=== PATIENT | male | born 1975 | race Caucasian/White ===

== ENCOUNTER 2020-05-23 11:12 | Outpatient (CLI) | payer MEDICAID, SELFPAY ==
--- NOTE | 2020-05-23 10:45 | DI.RAD_ITS ---
EXAM: XR TIB/FIB LT CLINICAL HISTORY: leg pain TECHNIQUE: COMPARISON: CR XR ANKLE LT COMPLETE from 05/23/2020 FINDINGS: Four views of the ankle and two views of the leg were obtained. There are 2 fixation screws in the m edial malleolus and there is plate and screw fixation of the distal fibula. The ankle mortise appear s fairly well maintained. Mild to moderate degenerative changes noted at the tibiotalar and subtalar joints. No other significant bony abnormality seen. IMPRESSION:
--- NOTE | 2020-05-23 11:00 | DI.RAD_ITS ---
EXAM: XR LUMBAR SPINE AP, LAT CLINICAL HISTORY: back pain TECHNIQUE: COMPARISON: No exams were available for comparison FINDINGS: Three views were obtained. There is a mild left convex lumbar scoliosis. There are slight degenerat robyn changes of the SI joints. There is multilevel disc space narrowing throughout the lumbar region. There is an apparent developmental anterior superior endplate defect of L4 and similar defect of in ferior anterior endplate L1. There is no evidence of acute fracture. There are mild endplate and fa cet hypertrophic degenerative changes. IMPRESSION: Mild DJD of the lumbosacral spine. 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
== END 2020-05-23 11:32 ==
PROVIDERS: Visit Provider Physician Assistant
DX: M25.579 Pain in unspecified ankle and joints of unspecified foot (principal); M54.9 Dorsalgia, unspecified; M51.37 Other intervertebral disc degeneration, lumbosacral region; M19.072 Primary osteoarthritis, left ankle and foot; M79.605 Pain in left leg
CPT/HCPCS: 72100; 73590; 73610

== ENCOUNTER 2020-05-27 03:19 | Outpatient (CLI) | payer MEDICAID, SELFPAY ==
--- NOTE | 2020-05-27 07:45 | DI.MRI_ITS ---
EXAM: MR LUMBAR SPINE WO CLINICAL HISTORY: SPINAL STENOSIS, BACK PAIN, M48.00. TECHNIQUE: Multiplanar multisequence MRI was performed. COMPARISON: No exams were available for comparison FINDINGS: MR examination of the lumbosacral spine was performed according to the usual protocol. There is Jovanna discal vertebral signal change L4-5 and L5-S1 consistent with disc degeneration. No other significa nt bony signal abnormality seen. Minimal changes of facet hypertrophy seen throughout the lumbar reg ion. The conus medullaris appears intact. No significant findings involving the T11-12 through L 1 2 leve ls. At L2-3 there is a minimal left lateral disc herniation, no definite neural impingement seen although left-sided impingement in spinal canal is not entirely excluded. No central canal spinal stenosis, no neural foraminal stenosis. At L3-4 there is a moderate disc bulge. No disc herniation, central canal spinal stenosis, or neural foraminal stenosis. At L4-5 there is a moderate-sized to large central and right paracentral disc herniation most clearly seen on the T2 weighted MSMA images which impinges and distorts the thecal sac centrally and to the right of midline. No bony central canal spinal stenosis but the available spinal canal is reduced in area by nearly 50 percent at this level but the disc herniation. At L5-S1 there is a moderate disc bulge without disc herniation. No central canal spinal stenosis or neural foraminal stenosis. IMPRESSION: Central and right paracentral moderate to large disc herniation at L4-5 with significant distortion o f the thecal sac. Please correlate with neurologic examination regarding the possibility of neural i mpingement. DATA REPOSITORY:
== END 2020-05-27 03:39 ==
PROVIDERS: Visit Provider Student in an Organized Health Care Education/Training Program
DX: M51.26 Other intervertebral disc displacement, lumbar region (principal); M48.00 Spinal stenosis, site unspecified
CPT/HCPCS: 72148